=== PATIENT | male | born 1980 | race Caucasian/White ===

== ENCOUNTER 2021-11-07 14:36 | Emergency (ER) | payer MEDICAID ==
[~2021-11-07] VITALS: Ht 180.3 cm; Wt 82.6 kg
--- NOTE | 2021-11-07 14:36 | NUR ---
PT BIB RA 38 FROM "[facility]" C/O ETOH "PASSED OUT,DRINKING FOR A WEEK" PT IS AAOX1, NOT IN RESPIRATORY DISTRESS, HOOKED TO V/S MONITOR, KEPT RESTED AND COMFORTABLE. WILL CONTINUE TO MONITOR.
--- NOTE | 2021-11-07 14:40 | NUR ---
PT SEEN AND EXAMINED BY .
[2021-11-07 15:04] LABS: BASOPHILS # (AUTO) 0.1 K/uL (0.0-0.2); BASOPHILS % (AUTO) 1.1 % (0.0-2.0); EOSINOPHILS % (AUTO) 1.1 % (0.0-6.0); HEMATOCRIT 39 % (39-51); HEMOGLOBIN 12.8 g/dL (13.5-17.5); LYMPHOCYTES % (AUTO) 33.5 % (20.0-44.0); MEAN CORPUSCULAR HGB CONC 33 g/dl (31.0-36.0); MEAN CORPUSCULAR VOLUME 93 fL (80-96); MONOCYTES # (AUTO) 0.6 K/uL (0.1-1.30); MONOCYTES % (AUTO) 9.3 % (2.0-12.0); NEUTROPHILS # (AUTO) 3.3 K/uL (1.8-8.9); PLATELET COUNT (AUTO) 304 K/uL (150-450); RED BLOOD CELL COUNT(AUTO) 4.16 MIL/uL (4.5-6.0); WHITE BLOOD COUNT (AUTO) 6.1 K/uL (4.3-11.0)
--- NOTE | 2021-11-07 21:10 | NUR ---
PATIENT A, OX3, AMBULATORY WITH STEADY GAITS. PO INTAKE TOELRATED WELL. REPORTED FEELING BETTER AND WILLING TO LEAVE. MADE AWARE
--- NOTE | 2021-11-07 21:21 | NUR ---
Patient discharged to home in stable condition. Written and verbal after care instructions given. Patient verbalizes understanding of instruction.
[2021-11-07 22:11] LABS: POTASSIUM 3.6 mmol/L (3.5-5.1)
[2021-11-07 22:12] LABS: BILIRUBIN,TOTAL 0.2 mg/dL (0.2-1.0)
[2021-11-07 22:13] LABS: CALCIUM, SERUM 8.2 mg/dL (8.5-10.1)
[2021-11-07 22:14] LABS: BILIRUBIN,DIRECT 0.1 mg/dL (0.0-0.2)
[2021-11-07 22:15] LABS: ALBUMIN 3.8 g/dL (3.4-5.0); TOTAL PROTEIN, SERUM 7.8 g/dL (6.4-8.2)
[2021-11-08 00:06] VITALS: BP 139/79
== END 2021-11-07 21:21 | disposition home or self-care (01) ==
LOC: ER 14:38 → EDBD 14:38 → ER 21:21
DX: F10.129 Alcohol abuse with intoxication, unspecified (principal); Y90.8 Blood alcohol level of 240 mg/100 ml or more; Z60.2 Problems related to living alone
CPT/HCPCS: 36415; 80048-TC; 80076-TC; 85025-TC; G0480